=== PATIENT | male | born 1955 | race African-American/Black ===

== ENCOUNTER 2020-10-01 14:51 | Emergency (ER) | payer MEDICARE ==
[~2020-10-01] VITALS: Ht 167.6 cm; Wt 52.6 kg
[2020-10-01] MEDS ORDERED: MORPHINE SULFATE 4 MG/ML INJ. IV/SQ PRN (16:15)
--- NOTE | 2020-10-01 16:28 | RAD ---
XR CHEST 1V History: Cough. Comparison: None. Technique: Portable AP radiograph of the chest. Findings: The left lung is hyperinflated. There is a right lower lobe consolidation and likely moderate adjacen t atelectasis. No pneumothorax. Cardiac mediastinal silhouette and pulmonary vasculature are within n ormal limits. Osseous structures and soft tissues are unremarkable. Impression: 1. Moderate right pleural effusion and adjacent right lower lobe consolidation. Electronically signed by: Timur Baeza MD (10/01/2020 4:25 PM) [id number]
[2020-10-01] MEDS ORDERED: MORPHINE SULFATE 4 MG/ML INJ. IVP ONE (16:30)
[2020-10-01] MEDS ORDERED: FAMOTIDINE 20 MG/2 ML VIAL IVP ONE (16:30)
[2020-10-01] MEDS ORDERED: ONDANSETRON PF 4 MG/2 ML VIAL. IVP ONE (16:30)
[2020-10-01] MEDS ORDERED: IV NORMAL SALINE 1000ML BAG 1,000 ML IV ONE (16:30)
[2020-10-01 16:37] LABS: BASO # 0.1 x10^3/uL (0.0-0.2); BASO % 0 % (0-3); EOS % 0 % (0-3); HEMOGLOBIN 12.2 g/dL (13.0-17.5); LYMPH # 1.8 x10^3/uL (1.0-4.8); LYMPH % 7 % (24-48); MEAN CORPUSCULAR HEMOGLOBIN 31 pg (25-35); MEAN CORPUSCULAR HGB CONC 34 g/dL (31-37); MEAN CORPUSCULAR VOLUME 92 fL (79-100); MONO # 1.7 x10^3/uL (0.0-1.1); MONO % 7 % (0-9); NEUT # 21.3 x10^3/uL (1.8-7.7); NEUT % 86 % (31-73); PLATELET COUNT 570 x10^3/uL (140-400); RED BLOOD COUNT 3.92 x10^6/uL (4.30-5.70); RED CELL DISTRIBUTION WIDTH 13.3 % (11.5-14.5); WHITE BLOOD COUNT 24.8 x10^3/uL (4.0-11.0)
[2020-10-01 16:39] LABS: BILIRUBIN,URINE NEGATIVE (NEG); CLARITY,URINE CLEAR; COLOR,URINE YELLOW; NITRITE,URINE NEGATIVE (NEG); PROTEIN,URINE 30 mg/dL (NEG-TRACE); UROBILINOGEN,URINE 0.2 mg/dL (0.2 mg/dL)
[2020-10-01 16:58] LABS: BACTERIA,URINE 0 /HPF (0-FEW); WBC,URINE >40 /HPF (0-4)
[2020-10-01] MEDS ORDERED: CONTRAST GIVEN. MC PRN (17:00)
[2020-10-01 17:02] LABS: CALCIUM 9.5 mg/dL (8.5-10.1); CREATININE 0.7 mg/dL (0.7-1.3); GFR 136.5; POTASSIUM 3.8 mmol/L (3.5-5.1)
[2020-10-01 17:14] LABS: ALBUMIN 2.6 g/dL (3.4-5.0); ALBUMIN/GLOBULIN RATIO 0.5 (1.0-1.7); MAGNESIUM 1.8 mg/dL (1.8-2.4); TOTAL BILIRUBIN 0.4 mg/dL (0.2-1.0); TOTAL PROTEIN 7.9 g/dL (6.4-8.2)
--- NOTE | 2020-10-01 17:18 | EKG ---
[facility] [address] [place] [address] Test Date: 2020-10-01 Test Time: 16:27:16 Pat Name: AARON ROSADO Department: Room: Gender: M Tipple Supervisor: : 1955 Requested By: NOELLE MORENO Order Number: [id number] Reading MD: Measurements Intervals [place] Rate: 86 P: 65 TN: 158 QRS: 74 QRSD: 78 T: 73 QT: 386 QTc: 465 Interpretive Statements SINUS RHYTHM NORMAL ECG RI6.02 No previous ECG available for comparison
--- NOTE | 2020-10-01 17:23 | PHYS DOC ---
Past Medical History Additional Past Medical Histor: HERNIA,HIATAL HERNIA (NOELLE MORENO ENGINEERING WRITER) Past Surgical History: Appendectomy, Other Additional Past Surgical Histo: ABD SURG/PERITONITIS (NOELLE MORENO ENGINEERING WRITER) Smoking Status: Former Smoker Alcohol Use: None (NOELLE MORENO ENGINEERING WRITER) General Adult EDM: Chief Complaint: MULTIPLE COMPLAINTS HPI: HPI: Patient is a 65 year old male with history of peritonitis, diverticulosis, kidney stones, who presents to the ED today complaining of moderate generalized abdominal pain worse on the right lower quadrant pain, and a cough for 1 week. Patient states he has history of chronic abdominal pain. He states he followed up with his own PCP on Friday last week for cough and abdominal pain, was diagnosed with pneumonia and told he has a a kidney stone which will pass on its own. Patient denies any fever. Denies any nausea vomiting. He states he was started on doxycycline for pneumonia. (NOELLE MORENO ENGINEERING WRITER) Review of Systems: Review of Systems: Constitutional: Denies fever or chills. [] Eyes: Denies change in visual acuity. [] HENT: Denies nasal congestion or sore throat. [] Respiratory: Reports pneumonia, cough, denies any shortness of breath Cardiovascular: Denies chest pain or edema. [] GI: Reports right lower quadrant abdominal pain, denies nausea, vomiting, bloody stools or diarrhea. [] : Denies dysuria. [] Musculoskeletal: Denies back pain or joint pain. [] Integument: Denies rash. [] Neurologic: Denies headache, focal weakness or sensory changes. [] Endocrine: Denies polyuria or polydipsia. [] Lymphatic: Denies swollen glands. [] Psychiatric: Denies depression or anxiety. [] (NOLELE MORENO ENGINEERING WRITER) Heart Score: C/O Chest Pain: N/A Risk Factors: Risk Factors: DM, Current or recent (<one month) smoker, HTN, HLP, family history of CAD, obesity. Risk Scores: Score 0 - 3: 2.5% MACE over next 6 weeks - Discharge Home Score 4 - 6: 20.3% MACE over next 6 weeks - Admit for Clinical Observation Score 7 - 10: 72.7% MACE over next 6 weeks - Early Invasive Strategies (NOELLE MORENO ENGINEERING WRITER) Current Medications: Current Medications Medications (Trade) Dose Ordered Sig/Kofi Start Time Stop Time Status Last Admin Dose Admin Famotidine (Pepcid Vial) 20 mg 1X ONCE 10/01/20 16:30 10/01/20 16:31 DC 10/01/20 16:37 20 MG Info (CONTRAST GIVEN -- Rx MONITORING) 1 each PRN DAILY PRN 10/01/20 17:00 10/03/20 16:59 Iohexol (Omnipaque 300 Mg/ml) 75 ml 1X ONCE 10/01/20 17:30 10/01/20 17:31 Morphine Sulfate (Morphine Sulfate) 4 mg PRN Q15MIN PRN 10/01/20 16:15 10/02/20 16:14 Ondansetron HCl (Zofran) 4 mg 1X ONCE 10/01/20 16:30 10/01/20 16:31 DC 10/01/20 16:37 4 MG Sodium Chloride 1,000 ml @ 1,000 mls/hr 1X ONCE 10/01/20 16:30 10/01/20 17:29 10/01/20 16:37 1,000 MLS/HR (NOELLE MORENO ENGINEERING WRITER) Allergies: Allergies: Allergies Coded Allergies Type Severity Reaction Last Updated Verified Milk Containing Products Allergy Intermediate UNKNOWN 10/01/20 Yes (NOELLE MORENO ENGINEERING WRITER) Physical Exam: PE: Constitutional: Thin appearing patient, no acute distress, non-toxic appearance. [] HENT: Normocephalic, atraumatic, bilateral external ears normal, oropharynx moist, no oral exudates, nose normal. [] Eyes: PERRLA, EOMI, conjunctiva normal, no discharge. [] Neck: Normal range of motion, no tenderness, supple, no stridor. [] Cardiovascular:Heart rate regular rhythm, no murmur [] Lungs & Thorax: Diminished breath sounds Abdomen: Old healed surgical incision noted midline upper abdomen flat abdomen. Bowel sounds normal, soft, tenderness on palpation of the right lower quadrant with negative psoas sign, negative obturator sign, negative obturator sign, no guarding, no masses, no pulsatile masses. [] Skin: Warm, dry, no erythema, no rash. [] Back: No tenderness, mild right CVA tenderness. [] Extremities: No tenderness, no cyanosis, no clubbing, ROM intact, no edema. [] Neurologic: Alert and oriented X 3, normal motor function, normal sensory function, no focal deficits noted. Psychologic: Affect normal, judgement normal, mood normal. [] (NOELLE MORENO APRN) Current Patient Data: Labs: Laboratory Tests Test 10/01/20 16:17 10/01/20 16:22 White Blood Count 24.8 x10^3/uL (4.0-11.0) H Red Blood Count 3.92 x10^6/uL (4.30-5.70) L Hemoglobin 12.2 g/dL (13.0-17.5) L Hematocrit 36.0 % (39.0-53.0) L Mean Corpuscular Volume 92 fL (79-100) Mean Corpuscular Hemoglobin 31 pg (25-35) Mean Corpuscular Hemoglobin Concent 34 g/dL (31-37) Red Cell Distribution Width 13.3 % (11.5-14.5) Platelet Count 570 x10^3/uL (140-400) H Neutrophils (%) (Auto) 86 % (31-73) H Lymphocytes (%) (Auto) 7 % (24-48) L Monocytes (%) (Auto) 7 % (0-9) Eosinophils (%) (Auto) 0 % (0-3) Basophils (%) (Auto) 0 % (0-3) Neutrophils # (Auto) 21.3 x10^3/uL (1.8-7.7) H Lymphocytes # (Auto) 1.8 x10^3/uL (1.0-4.8) Monocytes # (Auto) 1.7 x10^3/uL (0.0-1.1) H Eosinophils # (Auto) 0.0 x10^3/uL (0.0-0.7) Basophils # (Auto) 0.1 x10^3/uL (0.0-0.2) Platelet Estimate Pending Sodium Level 134 mmol/L (136-145) L Potassium Level 3.8 mmol/L (3.5-5.1) Chloride Level 101 mmol/L (98-107) Carbon Dioxide Level 24 mmol/L (21-32) Anion Gap 9 (6-14) Blood Urea Nitrogen 6 mg/dL (8-26) L Creatinine 0.7 mg/dL (0.7-1.3) Estimated GFR (Cockcroft-Gault) 136.5 BUN/Creatinine Ratio 9 (6-20) Glucose Level 131 mg/dL (70-99) H Lactic Acid Level 1.1 mmol/L (0.4-2.0) Calcium Level 9.5 mg/dL (8.5-10.1) Magnesium Level Pending Total Bilirubin Pending Aspartate Amino Transferase (AST) Pending Alanine Aminotransferase (ALT) Pending Alkaline Phosphatase Pending Troponin I Quantitative < 0.017 ng/mL (0.000-0.055) OZ-Jbr-V-Type Natriuretic Peptide 234 pg/mL (0-124) H Total Protein Pending Albumin Pending Albumin/Globulin Ratio Pending Urine Collection Type Unknown Urine Color Yellow Urine Clarity Clear Urine pH 7.0 (<5.0-8.0) Urine Specific [place] 1.015 (1.000-1.030) Urine Protein 30 mg/dL (NEG-TRACE) Urine Glucose (UA) Negative mg/dL (NEG) Urine Ketones (Stick) 15 mg/dL (NEG) Urine Blood Large (NEG) Urine Nitrite Negative (NEG) Urine Bilirubin Negative (NEG) Urine Urobilinogen Dipstick 0.2 mg/dL (0.2 mg/dL) Urine Leukocyte Esterase Moderate (NEG) Urine RBC 11-20 /HPF (0-2) Urine WBC >40 /HPF (0-4) Urine Bacteria 0 /HPF (0-FEW) Urine Mucus Mod /LPF Laboratory Tests 10/01/20 16:17 Laboratory Tests 10/01/20 16:17 Vital Signs: Vital Signs Date Time Temp Pulse Resp B/P (MAP) Pulse Ox O2 Delivery O2 Flow Rate FiO2 10/01/20 16:38 21 94 Room Air 10/01/20 15:46 98.2 90 143/86 98.2 (NOELLE MORENO APRN) EKG: EKG: [] (NOELLE MORENO APRN) Radiology/Procedures: Radiology/Procedures: []PROCEDURE: PORTABLE CHEST 1V XR CHEST 1V History: Cough. Comparison: None. Technique: Portable AP radiograph of the chest. Findings: The left lung is hyperinflated. There is a right lower lobe consolidation and likely moderate adjacent atelectasis. No pneumothorax. Cardiac mediastinal silhouette and pulmonary vasculature are within normal limits. Osseous structures and soft tissues are unremarkable. Impression: 1. Moderate right pleural effusion and adjacent right lower lobe consolidation. Electronically signed by: Timur Prince MD (10/01/2020 4:25 PM) [id number] DICTATED and SIGNED BY: TIMUR PRINCE MD DATE: 10/01/20 [id number] PROCEDURE: CT ABD PELV W/ IV CONTRST ONLY EXAM: CT Abdomen and Pelvis with IV contrast CLINICAL HISTORY: Abdominal pain COMPARISON: none TECHNIQUE: Helical CT of the abdomen and pelvis was performed following the administration of intravenous contrast. Axial, coronal and sagittal reformatted images were generated. PQRS compliance statement - One or more of the following individualized dose reduction techniques were utilized for this study: 1. Automated exposure control 2. Adjustment of the mA and/or kV according to patient size 3. Use of iterative reconstruction technique FINDINGS: Lower Chest: Loculations of fluid anteriorly measuring 3.2 cm and 1.7 cm with peripheral enhancement suspicious for empyema. Right lower lobe and middle lobe airspace opacities likely consolidative process does pneumonia. Coronary calcifications. Loculation anteriorly suspicious for empyema Abdomen and Pelvis: Hepatic cysts are seen. Liver is enlarged measuring 18.7 cm in length. Spleen is unremarkable. Adrenal glands are normal. Gallbladder is normal. No biliary ductal dilatation. Pancreas is unremarkable. 1.7 cm calculus is seen in the right renal pelvis. Additional nonobstructing renal calculi bilaterally. Mild right hydronephrosis. No hydroureter. Bladder is unremarkable. No left hydronephrosis or hydroureter. Moderate colonic stool content is seen. No small or large bowel dilatation. No bowel obstruction. Aorta is normal in caliber with atherosclerotic calcifications. No abdominal or pelvic ascites. Mesenteric edema is seen. Mildly prominent retroperitoneal and iliac chain lymph nodes likely reactive. Hip joint and lumbar spine degenerative changes are seen. IMPRESSION: 1. Right lower lobe airspace opacities with loculated peripherally enhancing co llections, suspicious for pneumonia and empyema. 2. 1.7 cm calculus in the right renal pelvis with mild right hydronephrosis.. Additional nonobstructing renal calculi bilaterally. 3. Moderate right pleural effusion. Electronically signed by: Ricardo Lowery MD (10/01/2020 6:02 PM) [facility] DICTATED and SIGNED BY: RICARDO LOWERY MD DATE: 10/01/20 [id number] (NOELLE MORENO APRN) Course & Med Decision Making: Course & Med Decision Making Pertinent Labs and Imaging studies reviewed. (See chart for details) This is a 65-year-old male patient presenting to the ED today complaining of cough with diagnosis of pneumonia on Friday last week, right lower quadrant abdominal pain with diagnosis of a kidney stone on Friday last week. Patient is currently on doxycycline. Vitals on arrival to the ED temperature 98.2, heart rate 90, respiration 20 on room air, blood pressure 143/86, O2 sats 95% Chest x-ray interpreted by radiologist was noted for moderate right pleural effusion and adjacent right lower lobe consolidation. CT of the abdomen and pelvis was noted for right lower lobe airspace opacities suspicious for pneumonia and empyema. 1.7 cm calculus in the right renal pelvis with mild right hydronephrosis.. Additional nonobstructing renal calculi bilaterally. Moderate right pleural effusion. CBC with a WBC of 24.8 and a left shift, hemoglobin 12.2 with hematocrit of 36.0, platelets 570. Urine noted for large amount of blood and moderate amount of leukocytes Patient was given IV fluids, Zosyn, Flomax, and pain medicine. Patient was transferred to [facility] for urology services. Accepting physician (NOELLE MORENO APRN) Course & Med Decision Making I have participated in the care of this patient and I have reviewed and agree with all pertinent clinical information above including history, exam, and recommendations. Anna Skelton DO (ANNA SKELTON DO) Hussain Disclaimer: Hussain Disclaimer: This electronic medical record was generated, in whole or in part, using a voice recognition dictation system. (NOELLE MORENO APRN) Departure Departure Impression: Primary Impression: Right lower lobe pneumonia Qualified Codes: J18.9 - Pneumonia, unspecified organism Additional Impressions: Kidney stone Pyelonephritis Sepsis Qualified Codes: A41.9 - Sepsis, unspecified organism Pleural effusion, right Leukocytosis Qualified Codes: D72.829 - Elevated white blood cell count, unspecified Disposition: 02 SHORT TERM HOSPITAL Condition: STABLE Referrals: FIORDALIZA DUKES (PCP) Date and Time of Reassessment Date: Oct 01, 2020 Time: 18:00 (MUTUNGA,NOELLE M ENGINEERING WRITER) Fluid Challenge Is the fluid challenge complet: No IBW Target Volume Used: No BMI > 30: No (DAJUANUNGA,NOELLE M ENGINEERING WRITER) Vital Signs Vital Signs: Vital Signs Date Time Temp Pulse Resp B/P (MAP) Pulse Ox O2 Delivery O2 Flow Rate FiO2 10/01/20 19:37 16 94 Room Air 10/01/20 18:41 82 138/87 (104) 2.0 10/01/20 15:46 98.2 98.2 Temperature Source: Oral (MUTUNGA,NOELLE M ENGINEERING WRITER) Temperature Source: Oral (BROWN,ANNA M DO) Respirations Respiratory Effort: Normal Respiratory Pattern: Normal (MUTUNGA,NOELLE M ENGINEERING WRITER) Cardiovascular Pulse Rhythm: Regular Heart: Nml rate, reg. rhythm (MUTUNGA,NOELLE M ENGINEERING WRITER) Lung Sounds Breath Sounds: Clear, Diminished (MUTUNGA,NOELLE M ENGINEERING WRITER) Capillary Refil Capillary Refill: Rt Hand > 3 seconds (MUTUNGA,NOELLE M ENGINEERING WRITER) Peripheral Pulse Pulse Location: Monitor Pulse Strength: Normal (2+) Pulse Assessment Method: Monitor (MUTUNGA,NOELLE M ENGINEERING WRITER) Pulse Assessment Method: Monitor (BROWN,ANNA M DO) Integumentary Skin: Warm Skin Moisture: Moist Skin Turgor: Normal Skin Color: warm Fingernail Color: WNL (MUTUNGA,NOELLE M ENGINEERING WRITER) SIMÓNA,NOELLE M ENGINEERING WRITER Oct 01, 2020 17:22 BROWN,ANNA M DO Oct 01, 2020 23:49
[2020-10-01] MEDS ORDERED: IOHEXOL 300 MG/ML 100ML VIAL. IV ONE (17:30)
--- NOTE | 2020-10-01 18:04 | RAD ---
EXAM: CT Abdomen and Pelvis with IV contrast CLINICAL HISTORY: Abdominal pain COMPARISON: none TECHNIQUE: Helical CT of the abdomen and pelvis was performed following the administration of intrave nous contrast. Axial, coronal and sagittal reformatted images were generated. PQRS compliance statement - One or more of the following individualized dose reduction techniques wer e utilized for this study: 1. Automated exposure control 2. Adjustment of the mA and/or kV according to patient size 3. Use of iterative reconstruction technique FINDINGS: Lower Chest: Loculations of fluid anteriorly measuring 3.2 cm and 1.7 cm with peripheral enhancement suspicious fo r empyema. Right lower lobe and middle lobe airspace opacities likely consolidative process does pneu monia. Coronary calcifications. Loculation anteriorly suspicious for empyema Abdomen and Pelvis: Hepatic cysts are seen. Liver is enlarged measuring 18.7 cm in length. Spleen is unremarkable. Adrena l glands are normal. Gallbladder is normal. No biliary ductal dilatation. Pancreas is unremarkable. 1.7 cm calculus is seen in the right renal pelvis. Additional nonobstructing renal calculi bilaterall y. Mild right hydronephrosis. No hydroureter. Bladder is unremarkable. No left hydronephrosis or hydr oureter. Moderate colonic stool content is seen. No small or large bowel dilatation. No bowel obstruction. Aorta is normal in caliber with atherosclerotic calcifications. No abdominal or pelvic ascites. Mesenteric edema is seen. Mildly prominent retroperitoneal and iliac chain lymph nodes likely reactive. Hip joint and lumbar spine degenerative changes are seen. IMPRESSION: 1. Right lower lobe airspace opacities with loculated peripherally enhancing collections, suspicious for pneumonia and empyema. 2. 1.7 cm calculus in the right renal pelvis with mild right hydronephrosis.. Additional nonobstruct ing renal calculi bilaterally. 3. Moderate right pleural effusion. Electronically signed by: Ricardo Rivera MD (10/01/2020 6:02 PM) [facility]
[2020-10-01 18:40] LABS: % BANDS 7 % (0-9); % LYMPHS 7 % (24-48); % MONOS 4 % (0-10); % SEGS 82 % (35-66); PLT ESTIMATE INCREASED (ADEQUATE)
[2020-10-01] MEDS ORDERED: TAMSULOSIN 0.4 MG CAP.ER.24H. PO ONE (19:00)
[2020-10-01] MEDS ORDERED: PIPERACILLIN/TAZOBACTAM 3.375 GM in IV NORMAL SALINE 50ML 50 ML IV ONE (19:00)
[2020-10-01 20:41] VITALS: BP 126/78
--- NOTE | 2020-10-03 10:36 | NUR ---
IP: Informed pt of negative covid results. Pt verbalized understanding.
== END 2020-10-01 21:12 | disposition short-term general hospital (02) ==
LOC: ER 14:51
DX: J18.9 Pneumonia, unspecified organism (principal); N12 Tubulo-interstitial nephritis, not specified as acute or chronic; A41.9 Sepsis, unspecified organism; N13.2 Hydronephrosis with renal and ureteral calculous obstruction; D72.829 Elevated white blood cell count, unspecified; Z87.891 Personal history of nicotine dependence; Z90.89 Acquired absence of other organs; Z91.011 Allergy to milk products
CPT/HCPCS: 36415; 71045; 74177; 80053; 81001; 83605; 83735; 83880; 84443; 84484; 85007; 85025; 87040; 87086; 87426; 93005; 96361; 96365; 96375; 96376; 99285; J2270; J2405; J2543; J3490; J7030; Q9967; U0003; U0005